=== PATIENT | female | born 1995 | race Hispanic/Latino ===

== ENCOUNTER 2017-08-18 11:46 | Observation (INO) | payer BC ==
[2017-08-18] MEDS ORDERED: Sodium Chloride 0.9% 1,000 ML IV STA (12:02)
--- NOTE | 2017-08-18 12:02 | ED PDOC ---
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 Pt. stated that she took "dream beauty" capsule last night for the first time, went to sleep, woke up this global coordinator 4am with epigastric pain with nausea and vomiting, had chest pain when vomiting, no palpitation, no night sweat, no dizziness, no change in vision, no leg or arm pain, no other medical or psychological complaints. 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 [place] - Suicidal Assessment Feels Threatened In Home Enviroment: No Family/Social History - Physician Review Nursing Documentation Reviewed: Yes Family/Social History: Unknown Family HX Smoking Status: Never Smoked Hx Alcohol Use: No Hx Substance Use: No Hx Substance Use Treatment: No Allergies/Home Meds Allergies/Adverse Reactions: Allergies cefazolin Allergy (Verified 08/18/17 11:56) URTICARIA clarithromycin Allergy (Verified 08/18/17 11:56) URTICARIA Penicillins Allergy (Verified 08/18/17 11:56) URTICARIA vancomycin Allergy (Verified 08/18/17 11:56) URTICARIA Home Medications: Home Meds Medication Instructions Recorded Confirmed Progesterone 1 tab PO DAILY 08/18/17 08/18/17 Review of Systems - Review of Systems Constitutional: absent: Fatigue, Weight Change Eyes: absent: Vision Changes ENT: absent: Hearing Changes Respiratory: absent: SOB, Cough Cardiovascular: Chest Pain Gastrointestinal: Abdominal Pain, Nausea, Vomiting. absent: Diarrhea Skin: absent: Rash, Pruritis Neurological: absent: Headache, Dizziness Physical Exam Vital Signs Reviewed: Yes Vital Signs Temp Pulse Resp BP Pulse Ox 08/18/17 11:59 98.5 F 84 16 123/68 98 Temperature: Afebrile Blood Pressure: Normal Pulse: Regular Respiratory Rate: Normal Appearance: Positive for: Well-Appearing, Non-Toxic Pain Distress: Mild Mental Status: Positive for: Alert and Oriented X 3 - Systems Exam Head: Present: Atraumatic, Normocephalic Pupils: Present: PERRL Extroacular Muscles: Present: EOMI Conjunctiva: Present: Normal Mouth: Present: Moist Mucous Membranes Neck: Present: Normal Range of Motion, Trachea Midline. No: Lymphadenopathy Respiratory/Chest: Present: Clear to Auscultation, Good Air Exchange. No: Respiratory Distress, Accessory Muscle Use Cardiovascular: Present: Regular Rate and Rhythm, Normal S1, S2. No: Murmurs Abdomen: Present: Tenderness (+epigastric tenderness, negative mcburney tenderness), Normal Bowel Sounds. No: Distention, Peritoneal Signs, Rebound, Guarding Back: Present: Normal Inspection Upper Extremity: Present: Normal Inspection. No: Cyanosis, Edema Lower Extremity: Present: Normal Inspection. No: Edema Neurological: Present: GCS=15, Speech Normal, Motor Func Grossly Intact, Gait Normal, Memory Normal Skin: Present: Warm, Dry, Normal Color. No: Rashes Psychiatric: Present: Alert, Oriented x 3, Normal Insight, Normal Concentration Medical Decision Making ED Course and Treatment: 08/18/17 12:07 -labs/ua -gallbladder sonogram -Abdominal xray -EKG -IVF/pepcid/reglan -Observe and reassess 08/18/17 12:24 -Dr. Lee, pt.'s pmd came to evaluate the patient, stated that he spoke to Dr. Rivas Dawson as he is concerning about the cardiac component as the supplemental meds "Beauty dream" does including green tea extract. -Cardiac enzyme/thyroid profile/CK level will be ordered. -EKG: NSR @ 99 BPM, no ST elevation or depression, no T wave inversion. -Chest xray show no active disease -Abdominal xray show: no obstruction -Gallbladder sonogram show no acute findings. -Urine hcg negative -UA show no UTI -Labs are non-significant except wbc 14.6 (afebrile, no fever/chills) -Negative troponin on 1st set. -Negative lipase -Negative thyroid profile. 08/18/17 13:54 -EKG: NSR @ 99 BPM, no ST elevation or depression, no T wave inversion. -Chest xray show no active disease -Abdominal xray show: no obstruction -Gallbladder sonogram show no acute findings. -Urine hcg negative -UA show no UTI -Labs are non-significant except wbc 14.6 (afebrile, no fever/chills), bandemia 4 noted, blood culture -Negative troponin on 1st set. -Negative lipase -Negative thyroid profile. 08/18/17 14:25 -Dr. Lee and his resident Dr. Elias evaluated the patient, reviewed labs and radiology result, awared of the wbc 14.6 and bandemia of 4 (discussed with Dr. Elias and he will talk to Dr. Lee), request Dr. Rivas dawson and Dr. Jacob for routine consult, agreed to observe the patient overnight. -I discussed with Dr. Cortes, agreed the patient needs overnight observation. -Pt. request pain med for the lower back, toradol 30mg IV ordered - Lab Interpretations Lab Results: 08/18/17 12:20 08/18/17 12:20 Lab Results 08/18/17 12:20: Free T4 1.17, TSH 3rd Generation 1.10 08/18/17 12:20: WBC 14.6 H D, RBC 4.99, Hgb 15.5, Hct 45.1, MCV 90.4, MCH 31.1, MCHC 34.4, RDW 13.2, Plt Count 297, MPV 9.8, Gran % 94.0 H, Lymph % (Auto) 3.3 L , [place] % (Auto) 2.4, Eos % (Auto) 0.2 L, Baso % (Auto) 0.1, Gran # 13.76 H, Lymph # 0.5 L, [place] # 0.4, Eos # 0.0, Baso # 0.01, Neutrophils % (Manual) 89 H, Band Neutrophils % 4 H, Lymphocytes % (Manual) 3 L, Monocytes % (Manual) 4, Platelet Evaluation Normal 08/18/17 12:20: Sodium 138, Potassium 3.6, Chloride 105, Carbon Dioxide 19 L, Anion Gap 18, BUN 17, Creatinine 0.8, Est GFR ( Amer) > 60, Est GFR (Non- Af Amer) > 60, Random Glucose 97, Calcium 9.4, Magnesium 1.4 L, Total Bilirubin 1.3, AST 26, ALT 32, Alkaline Phosphatase 45, Lactate Dehydrogenase 443, Total Creatine Kinase 84, Troponin I < 0.01, Total Protein 8.0, Albumin 4.7, Globulin 3.3, Albumin/Globulin Ratio 1.4, Lipase 174 08/18/17 12:00: Urine Color Yellow, Urine Appearance Clear, Urine pH 7.0, Ur Specific [place] 1.015, Urine Protein Trace H, Urine Glucose (UA) Negative, Urine Ketones Negative, Urine Blood Negative, Urine Nitrate Negative, Urine Bilirubin Negative, Urine Urobilinogen 0.2, Ur Leukocyte Esterase Negative, Urine RBC 0 - 2, Urine WBC 0 - 2, Ur Epithelial Cells Many, Urine Bacteria Many I have reviewed the lab results: Yes Interpretation: Abnormal lab values (wbc 14.6) - RAD Interpretation Radiology Orders: 08/18/17 12:01 ABD 2 VIEWS (FLAT/UP OR DECUB) [RAD] Stat GALL BLADDER [US] Stat 08/18/17 12:28 CHEST ONE VIEW [RAD] Stat Abdominal sonogram: HISTORY: Epigastric pain COMPARISON: None. TECHNIQUE: Grayscale imaging was performed. FINDINGS: LIVER: Measures 14.5 cm in length. Normal echogenicity of the liver parenchyma. No mass. No intrahepatic bile duct dilatation. GALLBLADDER: There are no gallstones, wall thickening or pericholecystic fluid. The sonographic Lynch's sign is negative. COMMON BILE DUCT: Measures 4.4 mm. No stones. No dilatation. PANCREAS: Normal in size and echotexture. No mass. No ductal dilatation. RIGHT KIDNEY: Measures 10.0 cm in length. Normal echogenicity. No calculus, mass, or hydronephrosis. AORTA: No aneurysmal dilatation. IVC: Unremarkable. OTHER FINDINGS: None . IMPRESSION: Normal examination. Chest xray: PROCEDURE: CHEST RADIOGRAPH, 1 VIEW HISTORY: medical clearance COMPARISON: None available. FINDINGS: LUNGS: The lungs are well inflated and clear. PLEURA: No pneumothorax or pleural fluid seen. CARDIOVASCULAR: Normal. OSSEOUS STRUCTURES: No significant abnormalities. VISUALIZED UPPER ABDOMEN: Normal. OTHER FINDINGS: None. IMPRESSION: No active pulmonary disease. Abdominal xray: HISTORY: nausea/vomiting COMPARISON: No prior. FINDINGS: BOWEL: The bowel gas pattern is nonobstructive. There are no air-fluid levels. There is no free intraperitoneal air. BONES: Normal. OTHER FINDINGS: None. IMPRESSION: Nonobstructive bowel-gas pattern. Business Development Associate: Radiologist - EKG Interpretation EKG Interpretation (Text): 08/18/17 12:30 -EKG: NSR @ 99 BPM, no ST elevation or depression, no T wave inversion. Interpreted by ED Physician: Yes Type: 12 lead EKG - Medication Orders Current Medication Orders: Sodium Chloride (Sodium Chloride 0.9%) 1,000 mls @ 100 mls/hr IV .Q10H MARKELL Discontinued Medications Famotidine (Pepcid) 20 mg IVP STAT STA Stop: 08/18/17 12:03 Last Admin: 08/18/17 12:24 Dose: 20 mg IVP Administration Document 08/18/17 12:24 GINI (Rec: 08/18/17 12:25 GINI [facility] [id number]) Charges for Administration # of IVP Administrations 1 Sodium Chloride (Sodium Chloride 0.9%) 1,000 mls @ 999 mls/hr IV .Q1H1M STA Stop: 08/18/17 13:02 Last Admin: 08/18/17 12:24 Dose: 999 mls/hr eMAR Start Stop Document 08/18/17 12:24 GINI (Rec: 08/18/17 12:25 GINI [facility] [id number]) Intravenous Solution Start Date 08/18/17 Start Time 12:24 End Date 08/18/17 End time 13:24 Total Infusion Time 60 Magnesium Oxide (Mag-Ox) 400 mg PO STAT STA Stop: 08/18/17 13:58 Last Admin: 08/18/17 14:12 Dose: 400 mg Metoclopramide HCl (Reglan) 10 mg IVP STAT STA Stop: 08/18/17 12:03 Last Admin: 08/18/17 12:27 Dose: 10 mg IVP Administration Document 08/18/17 12:27 GIN[facility] ([facility] 12[id number] Charges for Administration # of IVP Administrations 1 - PA / CITY DRIVER / Resident Statement MD/DO has reviewed & agrees with the documentation as recorded. Disposition/Present on Arrival - Present on Arrival Any Indicators Present on Arrival: No History of DVT/PE: No History of Uncontrolled Diabetes: No Urinary Catheter: No History of Decub. Ulcer: No History Surgical Site Infection Following: None - Disposition Have Diagnosis and Disposition been Completed?: Yes Diagnosis: Chest pain, Abdominal pain, Leukocytosis Disposition: HOSPITALIZED Disposition Time: 13:56 Patient Plan: Observation, Telemetry Patient Problems: Current Active Problems Problem Status Onset Chest pain Acute Abdominal pain Acute Leukocytosis Acute Condition: STABLE Discharge Instructions (ExitCare): Chest Pain (ED) Referrals: Rodriguez Lee MD [Primary Care Provider] - Follow up with primary Forms: [employer] ([place]ian)
[2017-08-18 12:14] LABS: URINE BILIRUBIN NEGATIVE (NEGATIVE); URINE BLOOD NEGATIVE (NEGATIVE); URINE GLUCOSE (UA) NEGATIVE (NEGATIVE); URINE KETONE NEGATIVE (NEGATIVE); URINE LEUKOCYTE ESTERASE NEGATIVE Leu/uL (NEGATIVE); URINE PROTEIN TRACE mg/dL (<30 mg/dL); URINE UROBILINOGEN 0.2 E.U./dL (<1 E.U./dL)
[2017-08-18 12:16] LABS: URINE APPEARANCE CLEAR (CLEAR); URINE COLOR YELLOW (YELLOW)
[2017-08-18 12:54] LABS: BASO # 0.01 K/mm3 (0.0-2.0); BASO % 0.1 % (0.0-3.0); EOS % 0.2 % (1.5-5.0); GRAN # 13.76 (1.4-6.5); HEMATOCRIT 45.1 % (36.0-48.0); LYMPH # 0.5 (1.2-3.4); LYMPH % 3.3 % (22.0-35.0); MEAN CELL VOLUME 90.4 fl (80.0-105.0); MEAN CORPUSCULAR HEMOGLOBIN 31.1 pg (25.0-35.0); MEAN CORPUSCULAR HGB CONC 34.4 g/dl (31.0-37.0); MEAN PLATELET VOLUME 9.8 fl (7.0-11.0); MONO # 0.4 (0.1-0.6); MONO % 2.4 % (1.0-6.0); PLATELET COUNT 297 10^3/uL (120.0-450.0); RED CELL DISTRIBUTION WIDTH 13.2 % (11.5-14.5); WHITE BLOOD COUNT 14.6 10^3/ul (4.5-11.0)
[2017-08-18 12:57] LABS: URINE BACTERIA MANY (NEG); URINE EPITHELIAL CELLS MANY /hpf (0-5); URINE RBC 0 - 2 /hpf (0-2); URINE WBC 0 - 2 /hpf (0-6)
[2017-08-18 13:03] LABS: ALB/GLOB RATIO 1.4 (1.1-1.8); BILIRUBIN,TOTAL 1.3 mg/dL (0.2-1.3); CALCIUM 9.4 mg/dL (8.4-10.5); GFR AFRICAN-AMERICAN > 60; GLUCOSE,RANDOM 97 mg/dL (70-110); LIPASE 174 U/L (23-300)
[2017-08-18 13:11] LABS: ALKALINE PHOSPHATASE 45 U/L (38-126); ALT/SGPT 32 U/L (7-56); AST/SGOT 26 U/L (14-36); BLOOD UREA NITROGEN 17 mg/dL (7-21); CARBON DIOXIDE 19 mmol/L (21-33); CHLORIDE 105 mmol/L (98-107); MAGNESIUM 1.4 mg/dL (1.7-2.2); POTASSIUM 3.6 mmol/L (3.6-5.0); SODIUM 138 mmol/L (132-148)
[2017-08-18 13:15] LABS: TROPONIN I < 0.01 ng/mL
[2017-08-18 13:21] LABS: FREE T4 1.17 ng/dL (0.78-2.19)
[2017-08-18 13:35] LABS: THYROID STIMULATING HORMONE 1.1 mIU/mL (0.46-4.68)
--- NOTE | 2017-08-18 13:49 | US ---
HISTORY: Epigastric pain COMPARISON: None. TECHNIQUE: Grayscale imaging was performed. FINDINGS: LIVER: Measures 14.5 cm in length. Normal echogenicity of the liver parenchyma. No mass. No intrahepatic bile duct dilatation. GALLBLADDER: There are no gallstones, wall thickening or pericholecystic fluid. The sonographic Lynch's sign is negative. COMMON BILE DUCT: Measures 4.4 mm. No stones. No dilatation. PANCREAS: Normal in size and echotexture. No mass. No ductal dilatation. RIGHT KIDNEY: Measures 10.0 cm in length. Normal echogenicity. No calculus, mass, or hydronephrosis. AORTA: No aneurysmal dilatation. IVC: Unremarkable. OTHER FINDINGS: None . IMPRESSION: Normal examination.
[2017-08-18] MEDS ORDERED: Magnesium Oxide 400 mg Tab UD PO STA (13:57)
--- NOTE | 2017-08-18 14:03 | RAD ---
PROCEDURE: CHEST RADIOGRAPH, 1 VIEW HISTORY: medical clearance COMPARISON: None available. FINDINGS: LUNGS: The lungs are well inflated and clear. PLEURA: No pneumothorax or pleural fluid seen. CARDIOVASCULAR: Normal. OSSEOUS STRUCTURES: No significant abnormalities. VISUALIZED UPPER ABDOMEN: Normal. OTHER FINDINGS: None. IMPRESSION: No active pulmonary disease.
--- NOTE | 2017-08-18 14:04 | RAD ---
HISTORY: nausea/vomiting COMPARISON: No prior. FINDINGS: BOWEL: The bowel gas pattern is nonobstructive. There are no air-fluid levels. There is no free intraperitoneal air. BONES: Normal. OTHER FINDINGS: None. IMPRESSION: Nonobstructive bowel-gas pattern.
[2017-08-18 14:05] LABS: BAND 4 % (0-2); NEUTROPHIL 89 % (50.0-70.0); PLATELET ESTIMATE NORMAL (NORMAL)
[2017-08-18] MEDS: Sodium Chloride 0.9% 1,000 ML IV SCH (14:37)
--- NOTE | 2017-08-18 15:55 | CP.PCM.HP ---
History of Present Illness - History of Present Illness History of Present Illness: CC: Abd pain with N/V 22 F with pmh of anxiety, and migraine headaches present to the ED with severe abdominal pain. Pt states that she woke up at 3am this morning with abd pain 10/ 10 in severity. The pain is mid epigastric and non radiating. She had 8 episodes of bilious non bloody vomiting prior to coming to the ED. Pt states that last night she took a pill called "dream beauty" for fat loss for the first time. She also states that she had alot of caffeine and green tea yesterday. Pt has a history of migraines which she takes 2 pills of Advil for aprox 2/weeks - for many years. Pt denies eating any fast food, no sick contact. Pt also c/o of chest pain and palpitations sometimes but attributes it to her anxiety that she has. No other complaints 12 point ROS performed and negative other than stated above. PMH: anxiety, and migraine PSH: appendectomy Med: "dream beauty", and mini pill ALL: Cefazolin, Clarithromycin, PCN, and Vanco SH: social drinker, denies any drinking or drugs FH: reviewed and non contributory Present on Admission - Present on Admission Any Indicators Present on Admission: No Review of Systems - Review of Systems All systems: reviewed and no additional remarkable complaints except Past Patient History - Infectious Disease Hx of Infectious Diseases: None - Tetanus Immunizations Tetanus Immunization: Up to Date - Past Social History Smoking Status: Never Smoked - CARDIAC Hx Cardiac Disorders: No - PULMONARY Hx Respiratory Disorders: Yes Hx Asthma: Yes - MUSCULOSKELETAL/RHEUMATOLOGICAL Hx Falls: No - PSYCHIATRIC Hx Substance Use: No - SURGICAL HISTORY 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 absent: Rales, Rhonchi, Wheezes - Cardiovascular Exam Cardiovascular Exam: REGULAR RHYTHM, RRR, +S1, +S2 - GI/Abdominal Exam GI & Abdominal Exam: Normal Bowel Sounds, Soft. absent: Tenderness - Extremities Exam Extremities exam: Negative for: calf tenderness, pedal edema - Neurological Exam Neurological exam: Alert, Oriented x3 - Psychiatric Exam Psychiatric exam: Normal Affect, Normal Mood - Skin Skin Exam: Dry, Intact, Warm Results - Vital Signs Recent Vital Signs: Last Vital Signs Temp 98.5 F 08/18/17 11:59 Pulse 116 H 08/18/17 14:58 Resp 16 08/18/17 14:58 BP 110/67 08/18/17 14:58 Pulse Ox 99 08/18/17 14:58 - Labs Result Diagrams: 08/18/17 12:20 08/18/17 12:20 Assessment & Plan - Assessment and Plan (Free Text) Assessment: 22 F with pmh of anxiety, and migraine headaches (with chronic NSAID use) presents to the ED with severe abdominal pain. 1. Abd pain - WBC of 14.6, afebrile - Pain control - Antiemetics with Zofran PRN - Abd US - was negative - Abd Xray - negative - GI consulted for recs - CXR was negative - EKbpm sinus rhythm - Labs 2. Chest pain - possibly 2/2 to hx of anxiety - Cardiology consulted for recs - Trops x 1 negative - EKbpm sinus rhythm 3. Hypomagnesium - Repleted with MgOx x 1 - Cont to monitor 4. Hx of Migraine - Chronic NSAID use - Will consider starting propanalol 5. Hx of Anxiety - Will consider starting propanalol - Stable at this time 6. GI/DVT ppx - Protonix - Ambulating Pt was seen and plan was reviewed and discussed in detail with Dr Lee.
[2017-08-18 16:12] LABS: CHOLESTEROL 184 mg/dL (130-200)
--- NOTE | 2017-08-18 18:37 | CARD ---
APPROVED REPORT EKG Measurement Heart [id number] <Conclusion> Normal sinus rhythm Normal ECG
[2017-08-18 18:48] VITALS: BMI 23.6
[2017-08-18] MEDS ORDERED: Influenza Vaccine 60 mcg/0.5 mL SYR (4YR UP) IM ONE (18:48)
[2017-08-18] MEDS ORDERED: Pneumococcal 23-Valent Vaccine IM ONE (18:48)
--- NOTE | 2017-08-19 00:33 | CON ---
DATE: 08/18/2017 HISTORY: The patient is a 22-year-old woman who presents with nausea and vomiting with epigastric discomfort since 4 o'clock this morning. PAST MEDICAL HISTORY: The patient's past medical history is notable for an appendectomy and colitis in the past. She is currently on no medications other than an intermittent puffer for asthma, which she has not taken for a while. She denies hypertension, denies diabetes mellitus. No previous heart history. No palpitations noted. No angina noted. SOCIAL HISTORY: The patient does not smoke. However, the patient is an aggressive caffeine taker in the course of a day with marked hectic work week. REVIEW OF SYSTEMS: 14-point review of systems was reviewed. No cardiac symptomatology is noted. PHYSICAL EXAMINATION: VITAL SIGNS: Blood pressure is 123/68, heart rates in the 80s, normal sinus rhythm. NECK: Negative JVD. LUNGS: Without rales. HEART: With S1, S2. EXTREMITIES: Without edema. LABORATORIES: The troponin is negative x1. The magnesium is 1.4. The hemoglobin is 15 with a white count of 14.6. Troponins are negative x1. IMPRESSION: 1. Nausea and vomiting, likely secondary to peptic ulcer disease. 2. Peptic ulcer disease. 3. Hypomagnesemia. 4. No evidence for cardiac cause of her symptoms. Her EKG is negative, and her troponins are negative. ADDENDUM: Preliminary ultrasound of the gallbladder was negative. PLAN: I have discussed with the patient about the need to change her lifestyle, decrease caffeine intake. The patient will need to have her magnesium replaced. Pepcid daily would be appropriate. Rivas Sharp MD
--- NOTE | 2017-08-19 04:32 | CON ---
DATE: 08/18/2017 REASON FOR CONSULTATION: Abdominal pain. HISTORY OF PRESENT ILLNESS: This 22-year-old patient presented with acute onset of abdominal pain started about 4 a.m. today with multiple episodes of vomiting and abdominal cramping. No diarrhea. She said she took some fat burner pill called StorPool at about 10 p.m., she had this pain started around 4 a.m. this morning. No fever. No vomiting of blood. She had no similar episodes in the past. She has been taking Advil at least 2 pills a day, once or twice in a week for headache, migraine for a long time. She described that she has taken the fat burner pills in 10/2016 for up to 30 days without any problems. PAST MEDICAL HISTORY: Other past medical history significant as above, history of migraine, anxiety. The patient had pancolitis following appendicectomy about 3 to 4 years ago. ALLERGIES: SHE IS ALLERGIC TO CEFAZOLIN, CLARITHROMYCIN, PENICILLIN, AND VANCO. FAMILY HISTORY: Mother has a questionable history of anemia. SOCIAL HISTORY: Social alcohol drinking. Denies any drug use. REVIEW OF SYSTEMS: Positive as above. Other systems reviewed, negative. PHYSICAL EXAMINATION: GENERAL: The patient is lying on the bed, not in acute distress. VITAL SIGNS: Temperature 99.5, blood pressure is 108/63, respirations 20, O2 saturation 98%. HEENT: Atraumatic and anicteric. NECK: Supple. HEART: S1 and S2 heard. LUNGS: Bilateral air entry present. ABDOMEN: Soft. There is mild tenderness present in the epigastric area. EXTREMITIES: No edema. No cyanosis. NEUROLOGIC: Alert and oriented. Moves all the extremities. LABORATORY DATA: Hemoglobin 15.5, hematocrit 45.1, WBC is 14.6, platelets 297. LFTs are essentially unremarkable except magnesium is 1.4, being supplemented. Urinalysis negative. The ultrasound scan of the gallbladder was reviewed, negative. IMPRESSION: This 22-year-old admitted with acute onset of vomiting and abdominal pain. She had several episodes of vomiting. The patient has a mild leukocytosis. On examination, there was tenderness present. The patient also had some chest pain, evaluated by the Cardiology, appeared to be noncardiac. The etiology of mildly elevated leukocytosis is unclear. PLAN: Would recommend: 1. Follow up of the CBC and CMP in the morning. If the patient is stable clinically, would consider upper GI endoscopy to further evaluate. If there is any further leukocytosis or spike in temperature, we will consider CT scan of the abdomen and pelvis. 2. Considering the endoscopy evaluation. Case was discussed with Dr. Lee in the past and also discussed with resident earlier today. Thank you very much for allowing me to participate in the care of this patient. Ian Jacob MD
[2017-08-19] MEDS ORDERED: Pantoprazole 40 mg EC Tab PO SCH (06:00)
[2017-08-19 07:05] LABS: BASO # 0.01 K/mm3 (0.0-2.0); BASO % 0.1 % (0.0-3.0); EOS % 0.5 % (1.5-5.0); GRAN # 5.57 (1.4-6.5); GRAN % 75.6 % (50.0-68.0); HEMATOCRIT 36.5 % (36.0-48.0); LYMPH # 1.1 (1.2-3.4); LYMPH % 14.5 % (22.0-35.0); MEAN CELL VOLUME 90.6 fl (80.0-105.0); MEAN CORPUSCULAR HEMOGLOBIN 30.3 pg (25.0-35.0); MEAN CORPUSCULAR HGB CONC 33.4 g/dl (31.0-37.0); MEAN PLATELET VOLUME 9.8 fl (7.0-11.0); MONO # 0.7 (0.1-0.6); MONO % 9.3 % (1.0-6.0); RED CELL DISTRIBUTION WIDTH 13.4 % (11.5-14.5); WHITE BLOOD COUNT 7.4 10^3/ul (4.5-11.0)
[2017-08-19 07:37] LABS: ALB/GLOB RATIO 1.2 (1.1-1.8); ALKALINE PHOSPHATASE 31 U/L (38-126); ALT/SGPT 29 U/L (7-56); AST/SGOT 21 U/L (14-36); BILIRUBIN,TOTAL 0.7 mg/dL (0.2-1.3); BLOOD UREA NITROGEN 10 mg/dL (7-21); CALCIUM 7.3 mg/dL (8.4-10.5); CARBON DIOXIDE 22 mmol/L (21-33); CHLORIDE 107 mmol/L (98-107); GFR AFRICAN-AMERICAN > 60; GLUCOSE,RANDOM 89 mg/dL (70-110); MAGNESIUM 1.6 mg/dL (1.7-2.2); POTASSIUM 3.3 mmol/L (3.6-5.0); SODIUM 138 mmol/L (132-148); TOTAL PROTEIN 5.4 g/dL (5.8-8.3)
[2017-08-19] MEDS ORDERED: Potassium Chloride 20 mEq ER Tab PO ONE (09:13)
[2017-08-19] MEDS ORDERED: Midazolam 2 MG/2 ML VIAL ONE (15:10)
[2017-08-19] MEDS ORDERED: Propofol 10 mg/ml Inj (20 ML) ONE (15:10)
[2017-08-19] MEDS ORDERED: Albuterol HFA 90 mcg/actuation (8 g) ONE (15:11)
--- NOTE | 2017-08-19 15:24 | CP.PCM.PN ---
Subjective - Date & Time of Evaluation Date of Evaluation: 08/19/17 Time of Evaluation: 06:45 - Subjective Subjective: PGY [address] RAWLS/DR. GIBBONS Patient seen and examined at bedside. No acute events reported. Patient noted to be febrile overnight with t max of 101.5. Patient indicates fever broke and headache she previously complained of subsided. Patient denies chest pain, shortness of breath, n/v/c. Patient reports abdominal discomfort is 3/10 at time of interview. patient indicates able to pass ac and belch. Patient scheduled for EGD today. Objective - Vital Signs/Intake and Output Vital Signs (last 24 hours): Temp Pulse Resp BP Pulse Ox 98.6 F 95 H 12 120/68 99 08/19/17 14:34 08/19/17 14:34 08/19/17 14:34 08/19/17 14:34 08/19/17 14:34 Intake and Output: 08/19/17 08/19/17 06:59 18:59 Intake Total 2760 Balance 2760 - Medications Medications: Current Medications Acetaminophen (Tylenol 325mg Tab) 650 mg PO Q6H PRN PRN Reason: Pain, moderate (4-7) Last Admin: 08/19/17 00:05 Dose: 650 mg Sodium Chloride (Sodium Chloride 0.9%) 1,000 mls @ 100 mls/hr IV .Q10H [facility] Last Admin: 08/18/17 14:37 Dose: 100 mls/hr Ondansetron HCl (Zofran Inj) 4 mg IVP Q6H PRN PRN Reason: Nausea/Vomiting Last Admin: 08/18/17 16:21 Dose: 4 mg Pantoprazole Sodium (Protonix Inj) 40 mg IVP DAILY [facility] Last Admin: 08/19/17 09:21 Dose: 40 mg - Labs Labs: 08/19/17 06:20 08/19/17 06:20 - Constitutional Appears: No Acute Distress - Head Exam Head Exam: ATRAUMATIC, NORMAL INSPECTION, NORMOCEPHALIC - Eye Exam Eye Exam: EOMI, PERRL - ENT Exam ENT Exam: Mucous Membranes Moist - Cardiovascular Exam Cardiovascular Exam: REGULAR RHYTHM, +S1, +S2 - GI/Abdominal Exam GI & Abdominal Exam: Soft, Tenderness (mild mid epigastric pain), Normal Bowel Sounds. absent: Firm, Guarding - Extremities Exam Extremities Exam: absent: Calf Tenderness, Pedal Edema - Back Exam Back Exam: NORMAL INSPECTION - Neurological Exam Neurological Exam: Alert, Awake, Normal Gait, Oriented x3 Neuro motor strength exam: Left Upper Extremity: 5, Right Upper Extremity: 5, Left Lower Extremity: 5, Right Lower Extremity: 5 - Psychiatric Exam Psychiatric exam: Normal Affect, Normal Mood - Skin Skin Exam: Dry, Warm. absent: Rash Assessment and Plan - Assessment and Plan (Free Text) Assessment: Patient is a 22 F with a past medical history of anxiety and migraine headaches (with chronic NSAID use) who presented to ED complaining of severe abdominal pain who was admitted for observation and further medical management and evaluation. Plan: 1. Abd pain - WBC wnl today, afebrile today, febrile overnight with t max of 101.5 - Abd US - was negative - Abd Xray - negative - GI consulted for recs - plan for EGD today. f/u results - CXR was negative 2. Chest pain - possibly 2/2 to hx of anxiety - Cardiology consulted for recs - n/v likely 2/2 PUD, EKG negative - Change her lifestyle and decrease caffeine intake - Trop negative x 1 from admission 3. Hypomagnesium - Repleted with MgOx x 1 - Cont to monitor 4. Hx of Migraine - Chronic NSAID use - consider propranolol 5. GI/DVT ppx - Protonix - Ambulating Pt was seen and plan was reviewed and discussed in detail with attending
--- NOTE | 2017-08-19 17:47 | PN ---
CARDIOLOGY FOLLOWUP DATE OF SERVICE: 08/19/2017 SUBJECTIVE: The patient's abdominal pain is much improved. OBJECTIVE: VITAL SIGNS: Blood pressure is 90 systolic, heart rate is in the 90s. NECK: Negative JVD. LUNGS: Without rales. HEART: Reveals S1 and S2. EXTREMITIES: Without edema. LABORATORY DATA: Hemoglobin is 12.2. Chemistries, magnesium is up to 1.6, potassium is 3.3. IMPRESSION: 1. Abdominal pain. 2. Hypomagnesemia. 3. Hypokalemia. 4. Palpitations which resolved. PLAN: Given these findings, the patient received magnesium as well as potassium. The patient is for endoscopy today. Rivas Sharp MD
[2017-08-19] MEDS: Sodium Chloride 0.9% 1,000 ML IV SCH (20:19)
[2017-08-20 05:27] VITALS: O2SAT 98
[2017-08-20] MEDS: Sodium Chloride 0.9% 1,000 ML IV SCH (06:37)
[2017-08-20 07:40] LABS: BASO # 0.01 K/mm3 (0.0-2.0); BASO % 0.1 % (0.0-3.0); EOS # 0.3 (0.0-0.7); EOS % 3.3 % (1.5-5.0); GRAN # 5.75 (1.4-6.5); GRAN % 67.8 % (50.0-68.0); HEMATOCRIT 34.7 % (36.0-48.0); LYMPH # 1.6 (1.2-3.4); LYMPH % 19.1 % (22.0-35.0); MEAN CELL VOLUME 91.6 fl (80.0-105.0); MEAN CORPUSCULAR HEMOGLOBIN 29.8 pg (25.0-35.0); MEAN CORPUSCULAR HGB CONC 32.6 g/dl (31.0-37.0); MEAN PLATELET VOLUME 9.7 fl (7.0-11.0); MONO # 0.8 (0.1-0.6); MONO % 9.7 % (1.0-6.0); RED CELL DISTRIBUTION WIDTH 13.7 % (11.5-14.5); WHITE BLOOD COUNT 8.5 10^3/ul (4.5-11.0)
[2017-08-20 08:19] LABS: ALB/GLOB RATIO 1.2 (1.1-1.8); ALKALINE PHOSPHATASE 29 U/L (38-126); ALT/SGPT 30 U/L (7-56); AST/SGOT 18 U/L (14-36); BILIRUBIN,TOTAL 0.2 mg/dL (0.2-1.3); BLOOD UREA NITROGEN 5 mg/dL (7-21); CALCIUM 7.7 mg/dL (8.4-10.5); CARBON DIOXIDE 22 mmol/L (21-33); CHLORIDE 109 mmol/L (98-107); GFR AFRICAN-AMERICAN > 60; GLUCOSE,RANDOM 88 mg/dL (70-110); POTASSIUM 3.7 mmol/L (3.6-5.0); SODIUM 138 mmol/L (132-148); TOTAL PROTEIN 5.4 g/dL (5.8-8.3)
[2017-08-20 08:21] VITALS: BP 103/60; PULSE 60; RESP 16; TEMP 98.9
--- NOTE | 2017-08-20 12:24 | CP.PCM.DIS ---
Provider - Provider Date of Admission: 08/18/17 14:28 Attending physician: Yovany Tucker MD Primary care physician: Rodriguez Lee MD Consults: CHRIS Jacob Time Spent in preparation of Discharge (in minutes): 30 Hospital Course - Lab Results Lab Results: Micro Results 08/19/17 00:55 Urine,Clean Catch Urine Culture - Final No Growth (<1,000 CFU/ML) 08/18/17 15:20 Blood-Venous Blood Culture - Preliminary NO GROWTH AFTER 24 HOURS 08/18/17 15:05 Blood-Venous Blood Culture - Preliminary NO GROWTH AFTER 24 HOURS Most Recent Lab Values WBC 8.5 10^3/ul (4.5-11.0) 08/20/17 05:30 RBC 3.79 10^6/uL (3.5-6.1) 08/20/17 05:30 Hgb 11.3 g/dL (12.0-16.0) L 08/20/17 05:30 Hct 34.7 % (36.0-48.0) L 08/20/17 05:30 MCV 91.6 fl (80.0-105.0) 08/20/17 05:30 MCH 29.8 pg (25.0-35.0) 08/20/17 05:30 MCHC 32.6 g/dl (31.0-37.0) 08/20/17 05:30 RDW 13.7 % (11.5-14.5) 08/20/17 05:30 Plt Count 219 10^3/uL (120.0-450.0) 08/20/17 05:30 MPV 9.7 fl (7.0-11.0) 08/20/17 05:30 Gran % 67.8 % (50.0-68.0) 08/20/17 05:30 Lymph % (Auto) 19.1 % (22.0-35.0) L 08/20/17 05:30 [place] % (Auto) 9.7 % (1.0-6.0) H 08/20/17 05:30 Eos % (Auto) 3.3 % (1.5-5.0) 08/20/17 05:30 Baso % (Auto) 0.1 % (0.0-3.0) 08/20/17 05:30 Gran # 5.75 (1.4-6.5) 08/20/17 05:30 Lymph # 1.6 (1.2-3.4) 08/20/17 05:30 [place] # 0.8 (0.1-0.6) H 08/20/17 05:30 Eos # 0.3 (0.0-0.7) 08/20/17 05:30 Baso # 0.01 K/mm3 (0.0-2.0) 08/20/17 05:30 Neutrophils % (Manual) 89 % (50.0-70.0) H 08/18/17 12:20 Band Neutrophils % 4 % (0-2) H 08/18/17 12:20 Lymphocytes % (Manual) 3 % (22.0-35.0) L 08/18/17 12:20 Monocytes % (Manual) 4 % (1.0-6.0) 08/18/17 12:20 Platelet Evaluation Normal (NORMAL) 08/18/17 12:20 Sodium 138 mmol/L (132-148) 08/20/17 06:00 Potassium 3.7 mmol/L (3.6-5.0) 08/20/17 06:00 Chloride 109 mmol/L (98-107) H 08/20/17 06:00 Carbon Dioxide 22 mmol/L (21-33) 08/20/17 06:00 Anion Gap 11 (10-20) 08/20/17 06:00 BUN 5 mg/dL (7-21) L 08/20/17 06:00 Creatinine 0.7 mg/dl (0.7-1.2) 08/20/17 06:00 Est GFR ( Amer) > 60 08/20/17 06:00 Est GFR (Non-Af Amer) > 60 08/20/17 06:00 Random Glucose 88 mg/dL (70-110) 08/20/17 06:00 Hemoglobin A1c 4.7 % (4.2-6.5) 08/18/17 12:20 Calcium 7.7 mg/dL (8.4-10.5) L 08/20/17 06:00 Magnesium 1.6 mg/dL (1.7-2.2) L 08/19/17 06:20 Total Bilirubin 0.2 mg/dL (0.2-1.3) 08/20/17 06:00 AST 18 U/L (14-36) 08/20/17 06:00 ALT 30 U/L (7-56) 08/20/17 06:00 Alkaline Phosphatase 29 U/L (38-126) L 08/20/17 06:00 Lactate Dehydrogenase 443 U/L (333-699) 08/18/17 12:20 Total Creatine Kinase 84 U/L (35-230) 08/18/17 12:20 Troponin I < 0.01 ng/mL 08/18/17 12:20 Total Protein 5.4 g/dL (5.8-8.3) L 08/20/17 06:00 Albumin 2.9 g/dL (3.0-4.8) L 08/20/17 06:00 Globulin 2.5 gm/dL 08/20/17 06:00 Albumin/Globulin Ratio 1.2 (1.1-1.8) 08/20/17 06:00 Triglycerides 50 mg/dL (35-160) 08/18/17 12:20 Cholesterol 184 mg/dL (130-200) 08/18/17 12:20 LDL Cholesterol Direct 73 mg/dL (0-129) 08/18/17 12:20 HDL Cholesterol 92 mg/dL (29-60) H 08/18/17 12:20 Lipase 174 U/L (23-300) 08/18/17 12:20 Free T4 1.17 ng/dL (0.78-2.19) 08/18/17 12:20 TSH 3rd Generation 1.10 mIU/mL (0.46-4.68) 08/18/17 12:20 Urine Color Yellow (YELLOW) 08/18/17 12:00 Urine Appearance Clear (CLEAR) 08/18/17 12:00 Urine pH 7.0 (4.7-8.0) 08/18/17 12:00 Ur Specific [place] 1.015 (1.005-1.035) 08/18/17 12:00 Urine Protein Trace mg/dL (<30 mg/dL) H 08/18/17 12:00 Urine Glucose (UA) Negative mg/dL (NEGATIVE) 08/18/17 12:00 Urine Ketones Negative mg/dL (NEGATIVE) 08/18/17 12:00 Urine Blood Negative (NEGATIVE) 08/18/17 12:00 Urine Nitrate Negative (NEGATIVE) 08/18/17 12:00 Urine Bilirubin Negative (NEGATIVE) 08/18/17 12:00 Urine Urobilinogen 0.2 E.U./dL (<1 E.U./dL) 08/18/17 12:00 Ur Leukocyte Esterase Negative [place]/uL (NEGATIVE) 08/18/17 12:00 Urine RBC 0 - 2 /hpf (0-2) 08/18/17 12:00 Urine WBC 0 - 2 /hpf (0-6) 08/18/17 12:00 Ur Epithelial Cells Many /hpf (0-5) 08/18/17 12:00 Urine Bacteria Many (NEG) 08/18/17 12:00 Urine HCG, Qual Negative (NEGATIVE) 08/19/17 14:15 Urine Opiates Screen Negative (NEGATIVE) 08/18/17 14:00 Urine Methadone Screen Negative (NEGATIVE) 08/18/17 14:00 Ur Barbiturates Screen Negative (NEGATIVE) 08/18/17 14:00 Ur Phencyclidine Scrn Negative (NEGATIVE) 08/18/17 14:00 Ur Amphetamines Screen Negative (NEGATIVE) 08/18/17 14:00 U Benzodiazepines Scrn Negative (NEGATIVE) 08/18/17 14:00 U Oth Cocaine Metabols Negative (NEGATIVE) 08/18/17 14:00 U Cannabinoids Screen Negative (NEGATIVE) 08/18/17 14:00 - Hospital Course Hospital Course: Patient is a 22 F with past medical history of anxiety and migraine headaches who presented to the ED with severe 10/10 mid epigastric abdominal pain, bilious non bloody vomiting as well as chest pain. Patient was evaluated in the ED and found to have concern for gastritis and new onset chest pain. Patient was admitted for further work up and observation. Cardiology was consulted and evaluated the patient. Cardiology reported the patients chest discomfort in the setting of a normal ECG and negative troponin that they would recommend lifestyle modification. Patient was cleared by cardiology for discharge. Gastroenterology was consulted and evaluated the patient. She was scheduled for an upper endoscopy which was negative for peptic ulcers and rather showed signs of gastritis. The patient was placed on protonix for 5 weeks with planned follow up with gastroenterology outpatient. Patient was stabilized and monitored overnight after EGD. Patient remains hemodynamically stable, normotensive and euvolemic and appropriate for discharge with plan for outpatient follow up. Discharge Exam - Head Exam Head Exam: ATRAUMATIC, NORMAL INSPECTION, NORMOCEPHALIC - Eye Exam Eye Exam: EOMI, PERRL - ENT Exam ENT Exam: Mucous Membranes Moist - Neck Exam Neck exam: Normal Inspection - Respiratory Exam Respiratory Exam: Clear to PA & Lateral. absent: Rales, Rhonchi, Wheezes - Cardiovascular Exam Cardiovascular Exam: RRR, +S1, +S2. absent: Gallop, JVD, Rubs - GI/Abdominal Exam GI & Abdominal Exam: Normal Bowel Sounds, Soft. absent: Distended, Firm, Guarding, Rebound, Rigid, Tenderness - Neurological Exam Neurological exam: Alert, CN II-XII Intact, Oriented x3 - Skin Skin Exam: Dry, Intact, Normal Color, Warm Discharge Plan - Discharge Medications Prescriptions: Pantoprazole Sodium [Protonix] 40 mg PO DAILY 35 Days #35 tablet.dr - Follow Up Plan Condition: STABLE Disposition: HOME/ ROUTINE Additional Instructions: Follow up with PMD with in one week of discharge Follow up with GI with in 1-2 weeks of discharge Continue regular diet Protonix 40mg PO Daily for 5 weeks upon discharge Take medications as prescribed to you Referrals: Rodriguez Lee MD [Primary Care Provider] - Ian Jacob MD [Medical Doctor] -
== END 2017-08-20 16:11 | disposition home or self-care (01) ==
LOC: ED 11:46 → INTOOBSV 14:28 → ERH 14:28 → 5RSO 15:30
PROVIDERS: ADMIT Internal Medicine; ATTEND Internal Medicine
DX: K29.50 Unspecified chronic gastritis without bleeding (principal); D72.829 Elevated white blood cell count, unspecified; E83.42 Hypomagnesemia; E87.6 Hypokalemia; F41.9 Anxiety disorder, unspecified; G43.909 Migraine, unspecified, not intractable, without status migrainosus; J45.909 Unspecified asthma, uncomplicated; Z79.1 Long term (current) use of non-steroidal anti-inflammatories (NSAID); Z90.49 Acquired absence of other specified parts of digestive tract; Z88.1 Allergy status to other antibiotic agents; Z88.0 Allergy status to penicillin; R40.2412 Glasgow coma scale score 13-15, at arrival to emergency department; R00.2 Palpitations; R07.9 Chest pain, unspecified
CPT/HCPCS: 36415; 43239; 71010; 74020; 76705; 80053; 80061; 81001; 82550; 83036; 83615; 83690; 83735; 84439; 84443; 84484; 84703; 85025; 87040; 87086; 93005; 96361; 96372; 96374; 96375; 96376; 99285; C9113; G0378; G0480; J1885; J2001; J2250; J2405; J2704; J2765; J7040